=== PATIENT | male | born 1960 | race Caucasian/White ===

== ENCOUNTER 2016-06-15 14:27 | Emergency (ER) | payer BC ==
--- NOTE | 2016-06-15 15:15 | ED ---
General Adult HPI - General Chief complaint: Recheck/Abnormal Lab/Rx Stated complaint: Left side numbness/Stroke pt Time Seen by Provider: 06/15/16 14:53 Source: patient, RN notes reviewed Mode of arrival: wheelchair Limitations: no limitations - History of Present Illness Initial comments: Patient is a 55-year-old male who presents emergency room today with a chief complaint of numbness tingling to the left side of his face and hand area patient does admit that August 2015 was diagnosed with a stroke. Patient states that he had numbness tingling to the left upper lip and left fingertips. States he's had some degree of this sensation ever since. States that 2 days ago noticed that the symptoms seem to be somewhat increased. States that today he noticed that the numbness tingling to the left upper lip is now into the left cheek area. Patient also admits that he was at work he put his head back came for became very dizzy lightheaded. He states he had 2 episodes of this. States did not last very long. Denies any dizziness at this time. States still experiencing the numbness stinging to no the fingers and left upper lip and cheek area. Denies any other complaints or symptoms. Patient denies any recent fever, chills, shortness of breath, chest pain, back pain, abdominal pain , nausea or vomiting, dysuria or hematuria, constipation or diarrhea, headaches or visual changes, or any other complaints. - Related Data Home Medications Medication Instructions Recorded Confirmed Cholecalciferol [Vitamin D3] 2,000 unit PO DAILY 09/08/15 06/15/16 Divalproex ER [Depakote ER] 1,000 mg PO HS 09/08/15 06/15/16 Escitalopram [Lexapro] 10 mg PO DAILY 09/08/15 06/15/16 Multivit-Min/FA/Lycopene/Lut 1 tab PO DAILY 09/08/15 06/15/16 [Centrum Silver Tablet] Pantoprazole [Protonix] 40 mg PO DAILY 09/08/15 06/15/16 amLODIPine BESYLATE/BENAZEPRIL 1 cap PO DAILY 09/08/15 06/15/16 [amLODIPine BESYLATE/BENAZEPRIL 5-10 mg] Doxycycline Hyclate [Vibramycin] 100 mg PO BID 06/15/16 06/15/16 Varenicline [Chantix] 1 mg PO BID 06/15/16 06/15/16 hydrOXYzine PAMOATE [Vistaril] 25 mg PO TID 06/15/16 06/15/16 Previous Rx's Medication Instructions Recorded Atorvastatin [Lipitor] 80 mg PO HS #30 tab 09/10/15 Clopidogrel Bisulfate [Plavix] 75 mg PO DAILY #30 tab 09/10/15 Tiotropium 18 Mcg/Puff [Spiriva] 1 puff INHALATION RT-DAILY #1 09/10/15 inhaler Allergies Allergy/AdvReac Type Severity Reaction Status Date / Time Penicillins Allergy Severe Swelling Verified 06/15/16 14:50 Review of Systems ROS Statement: Those systems with pertinent positive or pertinent negative responses have been documented in the HPI. ROS Other: All systems not noted in ROS Statement are negative. Past Medical History Past Medical History: Chest Pain / Angina, Hyperlipidemia, Hypertension Additional Past Medical History / Comment(s): thoracic and lumbar back pain, L acromioclaviculat joint separation, L shoulder pain, trigger finger deformity l middle finger, acute naso pharyngitis, hypogonadism, depresion-major/mild, nicotine addiction, left knee osteomyelitis treated with IV antibiotics. History of Any Multi-Drug Resistant Organisms: None Reported Past Surgical History: Bowel Resection, Orthopedic Surgery Additional Past Surgical History / Comment(s): l knee arthroscopy/menisectomy, l arm's elbow fx with repair. Past Anesthesia/Blood Transfusion Reactions: No Reported Reaction Additional Past Anesthesia/Blood Transfusion Reaction / Comment(s): NEVER HAD BLOOD TRANSFUSION Past Psychological History: No Psychological Hx Reported Additional Psychological History / Comment(s): PT LIVES AT HOME WITH . .HE IS INDEPENDENT. 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 Smoking Status: Current every day smoker Past Alcohol Use History: Occasional Additional Past Alcohol Use History / Comment(s): Patient states he smokes 2 packs per day for the past 40 years. 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 Past Drug Use History: Marijuana, Opiates Additional Drug Use History / Comment(s): NO OPIATES IN 6 MONTHS AND RECENTLY STOPPED THE MARIJUANA - Past Family History Father Family Medical History: Coronary Artery Disease (CAD), Myocardial Infarction ([place] ) Additional Family Medical History / Comment(s): FATHER AT AGE 63 OF [place]. Mother Family Medical History: No Reported History Additional Family Medical History / Comment(s): RUTHIE IS ALIVE AND IS 86YRS OLD. Brother(s) Additional Family Medical History / Comment(s): Patient has 11 siblings, 5 sisters and 5 brothers alive. He had 1 brother that at 6 years of age after being hit by a car. Patient has 3 sons and 1 daughter that are healthy General Exam - General Exam Comments Initial Comments: General: The patient is awake and alert, in no distress, and does not appear acutely ill. Eye: Pupils are equal, round and reactive to light, extra-ocular movements are intact. No nystagmus. There is normal conjunctiva bilaterally. No signs of icterus. Ears, nose, mouth and throat: There are moist mucous membranes and no oral lesions. Neck: The neck is supple, there is no tenderness or JVD. Cardiovascular: There is a regular rate and rhythm. No murmur, rub or gallop is appreciated. Respiratory: Lungs are clear to auscultation, respirations are non-labored, breath sounds are equal. No wheezes, stridor, rales, or rhonchi. Gastrointestinal: Soft, non-distended, non-tender abdomen without masses or organomegaly noted. There is no rebound or guarding present. No CVA tenderness. Bowel sounds are unremarkable. Musculoskeletal: Normal ROM, no tenderness. Strength 5/5. Sensation intact. Pulses equal bilaterally 2+. Neurological: A&O x 3. CN II-XII intact, There are no obvious motor or sensory deficits. Coordination appears grossly intact. Speech is normal. Skin: Skin is warm and dry and no rashes or lesions are noted. Psychiatric: Cooperative, appropriate mood & affect, normal judgment. Limitations: no limitations Course Vital Signs 06/15/16 06/15/16 14:32 15:40 Temperature 97.0 F L 98.0 F Pulse Rate 67 62 Respiratory 20 16 Rate Blood Pressure 122/77 105/74 O2 Sat by Pulse 98 99 Oximetry EKG Findings - EKG Comments: EKG Findings:: EKG performed at 1525: A 12-lead EKG was performed and interpreted by me as showing the following: Rate is 63, and rhythm is normal sinus. There are normal QRS complexes and normal R-wave progression. ST segments have no elevation or depression, and [place] segments appear normal. Medical Decision Making - Medical Decision Making Case discussed in detail with attending physician Dr. Soriano. Patient reexamined at this time shows no signs of distress. His labs been reviewed. Patient states that symptoms have states a more being here in the emergency room. He admits to symptoms started 2 days ago. He does admit that this is her symptoms that is experienced over the last several months ever since having a stroke back in August 2015. He does admit that the have increased over the last [address] negative. Results were discussed with the patient. Options were discussed with patient about admission to the hospital for further evaluation with neuro consult. Patient states he does not was in a hospital and would rather be discharged home Risks were discussed with patient and family member at bedside. Again patient states he would like to be discharged. Patient states he will follow-up the family doctor and also her neurologist outpatient. Patient advised to return to emergency room for symptoms increase or worsen or for any other concerns. - Lab Data Result diagrams: 06/15/16 15:15 06/15/16 15:15 Lab Results 06/15/16 06/15/16 06/15/16 Range/Units 15:15 15:15 15:15 WBC 11.5 H (3.8-10.6) k/uL RBC 4.18 L (4.30-5.90) m/uL Hgb 13.8 (13.0-17.5) gm/dL Hct 40.4 (39.0-53.0) % MCV 96.7 (80.0-100.0) fL MCH 32.9 (25.0-35.0) pg MCHC 34.1 (31.0-37.0) g/dL RDW 13.9 (11.5-15.5) % Plt Count 320 (150-450) k/uL Neutrophils % 55 % Lymphocytes % 34 % Monocytes % 6 % Eosinophils % 1 % Basophils % 1 % Neutrophils # 6.3 (1.3-7.7) k/uL Lymphocytes # 3.9 (1.0-4.8) k/uL Monocytes # 0.7 (0-1.0) k/uL Eosinophils # 0.1 (0-0.7) k/uL Basophils # 0.1 (0-0.2) k/uL PT (9.0-12.0) sec INR (<1.1) APTT (22.0-30.0) sec Sodium 145 (137-145) mmol/L Potassium 3.9 (3.5-5.1) mmol/L Chloride 111 H (98-107) mmol/L Carbon Dioxide 25 (22-30) mmol/L Anion Gap 9 mmol/L BUN 12 (9-20) mg/dL Creatinine 0.80 (0.66-1.25) mg/dL Est GFR (MDRD) Af Amer >60 (>60 ml/min/1.73 sqM) Est GFR (MDRD) Non-Af >60 (>60 ml/min/1.73 sqM) Glucose 110 H (74-99) mg/dL Calcium 9.0 (8.4-10.2) mg/dL Total Bilirubin 0.3 (0.2-1.3) mg/dL AST 27 (17-59) U/L ALT 38 (21-72) U/L Alkaline Phosphatase 79 (38-126) U/L Total Creatine Kinase 126 (55-170) U/L CK-MB (CK-2) 0.9 (0.0-2.4) ng/mL CK-MB (CK-2) Rel Index 0.7 Troponin I <0.012 (0.000-0.034) ng/mL Total Protein 6.4 (6.3-8.2) g/dL Albumin 3.7 (3.5-5.0) g/dL 06/15/16 Range/Units 15:15 WBC (3.8-10.6) k/uL RBC (4.30-5.90) m/uL Hgb (13.0-17.5) gm/dL Hct (39.0-53.0) % MCV (80.0-100.0) fL MCH (25.0-35.0) pg MCHC (31.0-37.0) g/dL RDW (11.5-15.5) % Plt Count (150-450) k/uL Neutrophils % % Lymphocytes % % Monocytes % % Eosinophils % % Basophils % % Neutrophils # (1.3-7.7) k/uL Lymphocytes # (1.0-4.8) k/uL Monocytes # (0-1.0) k/uL Eosinophils # (0-0.7) k/uL Basophils # (0-0.2) k/uL PT 10.7 (9.0-12.0) sec INR 1.1 (<1.1) APTT 26.6 (22.0-30.0) sec Sodium (137-145) mmol/L Potassium (3.5-5.1) mmol/L Chloride (98-107) mmol/L Carbon Dioxide (22-30) mmol/L Anion Gap mmol/L BUN (9-20) mg/dL Creatinine (0.66-1.25) mg/dL Est GFR (MDRD) Af Amer (>60 ml/min/1.73 sqM) Est GFR (MDRD) Non-Af (>60 ml/min/1.73 sqM) Glucose (74-99) mg/dL Calcium (8.4-10.2) mg/dL Total Bilirubin (0.2-1.3) mg/dL AST (17-59) U/L ALT (21-72) U/L Alkaline Phosphatase (38-126) U/L Total Creatine Kinase (55-170) U/L CK-MB (CK-2) (0.0-2.4) ng/mL CK-MB (CK-2) Rel Index Troponin I (0.000-0.034) ng/mL Total Protein (6.3-8.2) g/dL Albumin (3.5-5.0) g/dL Disposition Clinical Impression: Paresthesia Disposition: HOME SELF-CARE Condition: Good Instructions: Paresthesia (ED) Additional Instructions: Please follow-up with the family doctor or neurologist tomorrow as discussed. Please return here to emergency room if any symptoms increase or worsen or for any other concerns. Time of Disposition: 17:14
[2016-06-15 16:09] LABS: Basophils # (A) 0.1 k/uL (0-0.2); Basophils % (A) 1 %; CH 32.3; CHCM 33.6; Eosinophils # (A) 0.1 k/uL (0-0.7); Eosinophils % (A) 1 %; HCT 40.4 % (39.0-53.0); HDW 2.49; HGB 13.8 gm/dL (13.0-17.5); Luc # (Auto) 0.39; Luc % (Auto) 3; Lymphocytes # (A) 3.9 k/uL (1.0-4.8); Lymphocytes % (A) 34 %; MCH 32.9 pg (25.0-35.0); MCHC 34.1 g/dL (31.0-37.0); MCV 96.7 fL (80.0-100.0); Mean Platelet Volume 6.6; Monocytes # (A) 0.7 k/uL (0-1.0); Monocytes % (A) 6 %; Neutrophils # (A) 6.3 k/uL (1.3-7.7); Neutrophils % (A) 55 %; RBC 4.18 m/uL (4.30-5.90); RDW 13.9 % (11.5-15.5); WBC 11.5 k/uL (3.8-10.6); WBC (Perox) 11.86
[2016-06-15 16:19] LABS: ALT 38 U/L (21-72); AST 27 U/L (17-59); Alkaline Phosphatase 79 U/L (38-126); Anion Gap 9 mmol/L; Blood Urea Nitrogen 12 mg/dL (9-20); Carbon Dioxide 25 mmol/L (22-30); Chloride 111 mmol/L (98-107); Creatine Kinase 126 U/L (55-170); Glucose 110 mg/dL (74-99); Non-African American GFR(MDRD) >60 (>60 ml/min/1.73 sqM); Potassium 3.9 mmol/L (3.5-5.1); Sodium 145 mmol/L (137-145); Total Bilirubin 0.3 mg/dL (0.2-1.3); Total Protein 6.4 g/dL (6.3-8.2)
--- NOTE | 2016-06-15 16:27 | CT ---
EXAMINATION TYPE: CT brain wo con DATE OF EXAM: 06/15/2016 4:21 PM COMPARISON: NONE HISTORY: Pt states of hand numbness. CT DLP: 971.9 mGycm Automated exposure control for dose reduction was used. FINDINGS: There is no acute intracranial hemorrhage, mass effect, or midline shift identified. The ventricles and sulci are within normal limits in size. The globes are intact and the visualized sinuses are annika ar. IMPRESSION: No acute intracranial hemorrhage, mass effect, or midline shift is seen.
[2016-06-15 16:32] LABS: Creatine Kinase MB 0.9 ng/mL (0.0-2.4); Troponin I <0.012 ng/mL (0.000-0.034)
[2016-06-15 16:43] LABS: INR 1.1 (<1.1); Partial Thromboplastin Time 26.6 sec (22.0-30.0); Prothrombin Time 10.7 sec (9.0-12.0)
[2016-06-15 17:28] VITALS: BP 135/87; PULSE 75; RESP 18; TEMP 98.5
== END 2016-06-15 17:28 | disposition home or self-care (01) ==
LOC: EC 14:27
DX: R20.2 Paresthesia of skin (principal); R42 Dizziness and giddiness; R20.0 Anesthesia of skin; I10 Essential (primary) hypertension; F17.200 Nicotine dependence, unspecified, uncomplicated; Z79.899 Other long term (current) drug therapy; Z88.0 Allergy status to penicillin; Z86.73 Personal history of transient ischemic attack (TIA), and cerebral infarction without residual deficits; Z86.79 Personal history of other diseases of the circulatory system
CPT/HCPCS: 36415; 70450; 80053; 82550; 82553; 84484; 85025; 85610; 85730; 93005; 99284

== ENCOUNTER → 2016-07-06 | Outpatient (CLI) | payer BC ==
--- NOTE | 2016-07-06 20:45 | MR ---
EXAMINATION TYPE: MR brain wo con, MR angio head wo con DATE OF EXAM: 07/06/2016 6:34 PM COMPARISON: CT brain June 15, 2016. MRI brain September 09, 2015. HISTORY: Patient has had a stroke, possibly another now. TECHNIQUE: Multiplanar, multisequence imaging of the brain and brainstem is performed without IV cont rast. [id number]-plihiq imaging proximal [place] of [place] is performed without contrast. 2-D and 3-D pos tprocessing is performed. FINDINGS: Diffusion weighted images demonstrate no evidence of a recent infarct or other diffusion abnormality. There is no worrisome extra-axial fluid collection. There is ventricular and sulcal prominence consis tent with diffuse cerebral atrophy. There are some scattered foci T2 hyperintensity seen throughout t he white matter bilaterally. Approximately 20 small scattered lesions are identified. Midline structures demonstrate normal morphology. The craniocervical junction appears within normal limits. Normal vascular flow voids are present. The visualized sinuses are clear and the globes are intact. Some patchy fluid signal seen in right mastoid air cells on current study. Interval resolutio n of left-sided mastoid fluid is noted. There is dominant left vertebral artery redemonstrated. There is no significant focal stenosis or ane urysmal change in the posterior circulation. There are hypoplastic posterior communicating arteries s een bilaterally. Images of the anterior circulation show no significant focal stenosis or aneurysmal change. Patent anterior communicating artery is identified IMPRESSION: 1. No evidence of aneurysmal change or significant focal stenosis at level of the [place] of [place]. 2. No evidence of a recent infarct. 3. Mild diffuse cerebral atrophy and chronic small vessel ischemic change redemonstrated without sign ificant interval change from prior MRI. 4. Possible new right-sided mild mastoiditis, clinical correlation advised.
== END | disposition home or self-care (01) ==
LOC: RADMRIMAIN 17:31
PROVIDERS: ATTEND Psychiatry & Neurology Neurology
DX: I63.8 Other cerebral infarction (principal); G31.9 Degenerative disease of nervous system, unspecified; I67.82 Cerebral ischemia
CPT/HCPCS: 70544; 70551

== ENCOUNTER → 2018-03-22 | Outpatient (CLI) | payer BC ==
--- NOTE | 2018-03-22 17:22 | CTL ---
EXAMINATION TYPE: CT Low Dose Lung DATE OF EXAM ORDERED: 03/22/2018 HISTORY: . Lung cancer screening CT DLP: [address] CTDI: 2.14 mGy Automated exposure control for dose reduction was used. SCREENING VISIT: Initial COMPARISON: None TECHNIQUE: Low dose computed tomography scan was performed through the chest at 1 mm thick sections a nd reconstructed images in the coronal plane at [address] DIAGNOSTIC QUALITY: Limited, but interpretable FINDINGS: LUNG NODULES: None. LUNGS: COPD: Severity: None Fibrosis: Severity: None Lymph nodes: None Other findings: None RIGHT PLEURAL SPACE: Effusion: None Calcification: None Thickening: None Pneumothorax: None LEFT PLEURAL SPACE: Effusion: None Calcification: None Thickening: None Pneumothorax: None HEART: Heart Size: Normal Coronary calcification: Mild Pericardial effusion: None OTHER FINDINGS: Upper abdomen: Normal Bony thorax: Normal Supraclavicular region: Normal Other: Ascending thoracic aorta at the level of main pulmonary artery is 3.2 cm. The main pulmonary a rtery the bifurcation is 2.6 cm. IMPRESSION: 1. No suspicious changes. FOLLOW UP CT CHEST RECOMMENDATION: Screening low-dose CT chest per protocol CT LUNG RAD: 1
== END | disposition home or self-care (01) ==
LOC: RADCTMAIN 13:17
PROVIDERS: ATTEND Family Medicine
DX: Z12.2 Encounter for screening for malignant neoplasm of respiratory organs (principal); Z87.891 Personal history of nicotine dependence

== ENCOUNTER → 2019-05-20 | Outpatient (CLI) | payer BC ==
--- NOTE | 2019-05-20 08:21 | CTL ---
EXAMINATION TYPE: CT Low Dose Lung DATE OF EXAM ORDERED: 05/20/2019 HISTORY: Long-term tobacco use. Lung cancer screening CT DLP: 72.[address] CTDI: 2.1 mGy Automated exposure control for dose reduction was used. SCREENING VISIT: Second study COMPARISON: Prior low-dose lung screening CT March 22, 2018 TECHNIQUE: Low dose computed tomography scan was performed through the chest at 1 mm thick sections a nd reconstructed images in the coronal plane at [address] DIAGNOSTIC QUALITY: Satisfactory FINDINGS: LUNG NODULES: None. LUNGS: COPD: Severity: None Fibrosis: Severity: Normal Lymph nodes: No suspicious greater than 1 cm Other findings: None BILATERAL PLEURAL SPACE: Effusion: None Calcification: None Thickening: None Pneumothorax: None HEART: Heart Size: Normal Coronary calcification: Mild Pericardial effusion: None OTHER FINDINGS: Upper abdomen: None Bony thorax: None Supraclavicular region: None Other: None IMPRESSION: No suspicious new nodules or masses. FOLLOW UP CT CHEST RECOMMENDATION: Annual low-dose lung screening CT CT LUNG RAD: Lung-Rad 1 Negative
== END | disposition home or self-care (01) ==
LOC: RADCTMAIN 07:55
PROVIDERS: ATTEND Family Medicine
DX: Z12.2 Encounter for screening for malignant neoplasm of respiratory organs (principal); Z87.891 Personal history of nicotine dependence

== ENCOUNTER 2019-08-07 11:00 | Day surgery (SDC) | payer BC ==
[2019-08-05 09:42] VITALS: BMI 20.7
[~2019-08-07 11:00] MED LIST: CLINDAMYCIN 900 MG in DEXTROSE 5% IN WATER 50 ML IVPB ONE
[2019-08-07 11:26] VITALS: TEMP 98.6
[2019-08-07] MEDS ORDERED: LACTATED RINGERS 1,000 ML IV ONE (11:27)
[2019-08-07] MEDS ORDERED: LIDOCAINE 1% (10MG/ML) FOR IV START INTRADERMA ONE (11:27)
[2019-08-07] MEDS ORDERED: DEXAMETHASONE SOD PHOS (MDV) 100 MG/10 ML VIAL IVP ONE (12:08)
[2019-08-07] MEDS ORDERED: ONDANSETRON 4 MG/2 ML VIAL IVP ONE (12:08)
[2019-08-07] MEDS ORDERED: PROPOFOL 10 MG/ML 20 ML VIAL IV ONE (12:21)
[2019-08-07] MEDS ORDERED: MIDAZOLAM 2 MG/2 ML VIAL ONE (12:21)
[2019-08-07] MEDS ORDERED: fentaNYL (PF) 50 MCG/ML 2 ML AMP ONE (12:21)
[2019-08-07] MEDS ORDERED: LIDOCAINE 2% INJ 20 MG/ML SQ ONE (12:35)
[2019-08-07] MEDS ORDERED: BUPIVACAINE (PF) 0.5% 30 ML VIAL SQ ONE (12:35)
[2019-08-07] MEDS ORDERED: HYDROmorphone 0.5 MG/0.5 ML SYRINGE IVP PRN (13:11)
[2019-08-07 13:15] VITALS: RESP 16
[2019-08-07] MEDS ORDERED: LACTATED RINGERS 1,000 ML IV SCH (13:15)
[2019-08-07 13:41] VITALS: BP 112/73; PULSE 55
--- NOTE | 2019-08-07 15:12 | OP ---
OPERATIVE REPORT DATE OF SERVICE: 08/06/2025. PREOPERATIVE DIAGNOSIS: Complete extensor tendon laceration, right thumb, zone 2. FINAL DIAGNOSIS: Complete extensor tendon laceration, right thumb, zone 2. PROCEDURE: Primary repair, complete extensor tendon laceration, right thumb zone 2. INDICATIONS: A 59-year-old man sustained a complete laceration of his EPL over the dorsal proximal phalanx level just distal to the extensor elliott mechanism. This occurred approximately a week ago. Repair was easily possible without excessive tension. There was no signs of wound infection. PROCEDURE DESCRIPTION: A 59-year-old man taken to the operative suite, given IV sedation and I did a modified digital block of his right thumb with a combination of Xylocaine and Marcaine both without epinephrine. The hand was then prepped and draped in the usual manner. It was elevated, exsanguinated and cuff was inflated to 250 mmHg. His wound was opened and as anticipated, there was slight retraction of the tendon proximally, but it was held up by the extensor elliott mechanism. This enabled relatively easy exposure with slight lengthening in a zigzag manner both proximally and distally. The tendons edges were mobilized and freshened with a sharp cut. It was easy to approximate the edges by hyperextending the IP joint of the thumb. I also advanced the proximal stump distally and held it in place with a 25-gauge needle. The primary repair was with 3-0 Tycron as a core suture using a double grasping modified Moody-type stitch. This provided good approximation and there was good suture purchase. This was augmented with 2 additional mattress sutures of the same material producing a 6 core repair. The edges were well approximated and I did not feel it was necessary to supplement this with additional peripheral suture. The wound was thoroughly irrigated. The resting posture of the thumb returned to normal. The repair was secure on a direct observation. After the wound had been thoroughly cleansed and the tourniquet had been released, hemostasis was accomplished with pressure and a small amount of electrocautery. The wound was closed with interrupted 5-0 nylon suture. Soft bulky dressing was applied followed by a plaster splint holding the wrist in a slight extended position and the thumb in an extended position. He was then taken to recovery room in satisfactory condition. MMODL / IJN: [id number] /
== END 2019-08-07 14:00 | disposition home or self-care (01) ==
LOC: OR 11:00
PROVIDERS: ATTEND Orthopaedic Surgery Hand Surgery
DX: S66.221A Laceration of extensor muscle, fascia and tendon of right thumb at wrist and hand level, initial encounter (principal); I10 Essential (primary) hypertension; E78.5 Hyperlipidemia, unspecified; J44.9 Chronic obstructive pulmonary disease, unspecified; F32.9 Major depressive disorder, single episode, unspecified; Z79.899 Other long term (current) drug therapy; Z79.02 Long term (current) use of antithrombotics/antiplatelets; Z88.0 Allergy status to penicillin; Z98.890 Other specified postprocedural states; Z72.0 Tobacco use; Z86.73 Personal history of transient ischemic attack (TIA), and cerebral infarction without residual deficits; Z83.3 Family history of diabetes mellitus; W26.8XXA Contact with other sharp object(s), not elsewhere classified, initial encounter; Y93.89 Activity, other specified; Y92.019 Unspecified place in single-family (private) house as the place of occurrence of the external cause
CPT/HCPCS: 26418; J2001; J2250; J2405; J3010; J1100; J2704

== ENCOUNTER 2020-06-03 18:35 | Observation (INO) | payer BC ==
--- NOTE | 2020-06-03 19:11 | ED ---
General Adult HPI - General Chief complaint: Recheck/Abnormal Lab/Rx Stated complaint: Arms are numb/Chest discomfort Time Seen by Provider: 06/03/20 18:48 Source: patient, RN notes reviewed, old records reviewed Mode of arrival: ambulatory Limitations: no limitations - History of Present Illness Initial comments: This is a 59-year-old male with a history of TIA prior workups for angina history depression and bipolar disorder who presents with complaints of chest pain but bilateral arm heaviness 2 weeks ago he states it lasted briefly at that time he recurrence today around 2 AM also some nausea and dizziness. Early he is symptom-free he did go to his doctor's office and was sent here for further evaluation. He denies any dizziness or any other symptoms at this time. - Related Data Home Medications Medication Instructions Recorded Confirmed Atorvastatin [Lipitor] 80 mg PO HS 08/05/19 08/07/19 Clopidogrel [Plavix] 75 mg PO DAILY 08/05/19 08/07/19 Divalproex Sodium [Depakote] 1,000 mg PO HS 08/05/19 08/07/19 Ergocalciferol (Vitamin D2) 50,000 unit PO MO 08/05/19 08/07/19 [Vitamin D2] Escitalopram [Lexapro] 10 mg PO DAILY 08/05/19 08/07/19 Omeprazole 20 mg PO DAILY 08/05/19 08/07/19 amLODIPine BESYLATE/BENAZEPRIL 1 cap PO DAILY 08/05/19 08/07/19 [Lotrel 5-10 MG] Allergies Allergy/AdvReac Type Severity Reaction Status Date / Time Penicillins Allergy Severe Swelling Verified 06/03/20 18:42 Review of Systems ROS Statement: Those systems with pertinent positive or pertinent negative responses have been documented in the HPI. ROS Other: All systems not noted in ROS Statement are negative. Past Medical History Past Medical History: Chest Pain / Angina, Hyperlipidemia, Hypertension Additional Past Medical History / Comment(s): thoracic and lumbar back pain, L acromioclaviculat joint separation, L shoulder pain, trigger finger deformity l middle finger, acute naso pharyngitis, hypogonadism, depresion-major/mild, nicotine addiction, left knee osteomyelitis treated with IV antibiotics. History of Any Multi-Drug Resistant Organisms: None Reported Past Surgical History: Bowel Resection, Orthopedic Surgery Additional Past Surgical History / Comment(s): LT knee arthroscopy/menisectomy, LT arm's elbow fx with repair. LT THUMB SX, hand surgery Past Anesthesia/Blood Transfusion Reactions: No Reported Reaction Additional Past Anesthesia/Blood Transfusion Reaction / Comment(s): NEVER HAD BLOOD TRANSFUSION Past Psychological History: Bipolar, Depression Smoking Status: Current every day smoker Past Alcohol Use History: None Reported Past Drug Use History: Marijuana - Past Family History Father Family Medical History: Coronary Artery Disease (CAD), Myocardial Infarction ([place]) Additional Family Medical History / Comment(s): FATHER AT AGE 63 OF [place]. Mother Family Medical History: Deep Vein Thrombosis (DVT) Additional Family Medical History / Comment(s): MOTHER IS ALIVE AND IS 92 YRS OLD. Brother(s) Additional Family Medical History / Comment(s): Patient has 11 siblings, 5 sisters and 5 brothers alive. He had 1 brother that at 6 years of age after being hit by a car. Patient has 3 sons and 1 daughter that are healthy General Exam - General Exam Comments Initial Comments: This is a well-developed well-nourished awake alert oriented 3 male Limitations: no limitations General appearance: alert, in no apparent distress Head exam: Present: atraumatic, normocephalic, normal inspection Eye exam: Present: normal appearance, PERRL, EOMI. Absent: scleral icterus, conjunctival injection, periorbital swelling ENT exam: Present: normal exam, mucous membranes moist Neck exam: Present: normal inspection, full ROM, other. Absent: tenderness, meningismus, lymphadenopathy Respiratory exam: Present: normal lung sounds bilaterally. Absent: respiratory distress, wheezes, rales, rhonchi, stridor Cardiovascular Exam: Present: regular rate, normal rhythm, normal heart sounds. Absent: systolic murmur, diastolic murmur, rubs, gallop, clicks GI/Abdominal exam: Present: soft, normal bowel sounds. Absent: distended, tenderness, guarding, rebound, rigid Extremities exam: Present: normal inspection, full ROM, normal capillary refill. Absent: tenderness, pedal edema, joint swelling, calf tenderness Back exam: Present: normal inspection Neurological exam: Present: alert, oriented X3, CN II-XII intact Psychiatric exam: Present: normal affect, normal mood Skin exam: Present: warm, dry, intact, normal color. Absent: rash Course Vital Signs 06/03/20 18:37 Temperature 98.3 F Pulse Rate 70 Respiratory 18 Rate Blood Pressure 122/74 O2 Sat by Pulse 98 Oximetry EKG Findings - EKG Results: EKG: interpreted by MELODY, sinus rhythm (Sinus rhythm of 52 IN interval 134 QRS duration 12 QT since QTC 444/412 low-voltage QRSs does compare with EKG dated 06/15/16 he also does correlate with the one submitted from the doctor's office.) Medical Decision Making - Medical Decision Making Patient has no further symptoms at this time however his symptoms are suspicious for coronary disease as well as cerebrovascular abnormalities. I did discuss case with Dr. Miguel patient will be admitted with consultation by cardiology and neurology. Dr. Dinh will be taking over care in the morning. - Lab Data Result diagrams: 06/03/20 19:12 06/03/20 19:12 Lab Results 06/03/20 06/03/20 06/03/20 Range/Units 19:12 19:12 19:12 WBC 8.7 (3.8-10.6) k/uL RBC 4.06 L (4.30-5.90) m/uL Hgb 13.0 (13.0-17.5) gm/dL Hct 39.4 (39.0-53.0) % MCV 97.1 (80.0-100.0) fL MCH 32.2 (25.0-35.0) pg MCHC 33.1 (31.0-37.0) g/dL RDW 13.9 (11.5-15.5) % Plt Count 279 (150-450) k/uL MPV 7.2 Neutrophils % 40 % Lymphocytes % 46 % Monocytes % 8 % Eosinophils % 2 % Basophils % 1 % Neutrophils # 3.5 (1.3-7.7) k/uL Lymphocytes # 4.1 (1.0-4.8) k/uL Monocytes # 0.7 (0-1.0) k/uL Eosinophils # 0.2 (0-0.7) k/uL Basophils # 0.1 (0-0.2) k/uL PT 10.6 (9.0-12.0) sec INR 1.0 (<1.2) APTT 26.2 (22.0-30.0) sec D-Dimer 0.27 (<0.60) mg/L FEU Sodium 140 (137-145) mmol/L Potassium 3.9 (3.5-5.1) mmol/L Chloride 108 H (98-107) mmol/L Carbon Dioxide 26 (22-30) mmol/L Anion Gap 6 mmol/L BUN 14 (9-20) mg/dL Creatinine 0.86 (0.66-1.25) mg/dL Est GFR (CKD-EPI)AfAm >90 (>60 ml/min/1.73 sqM) Est GFR (CKD-EPI)NonAf >90 (>60 ml/min/1.73 sqM) Glucose 104 H (74-99) mg/dL Calcium 9.1 (8.4-10.2) mg/dL Magnesium 2.1 (1.6-2.3) mg/dL Total Bilirubin 0.3 (0.2-1.3) mg/dL AST 28 (17-59) U/L ALT 17 (4-49) U/L Alkaline Phosphatase 66 (38-126) U/L Creatine Kinase 122 (55-170) U/L Troponin I (0.000-0.034) ng/mL NT-Pro-B Natriuret Pep pg/mL Total Protein 6.5 (6.3-8.2) g/dL Albumin 3.9 (3.5-5.0) g/dL 06/03/20 06/03/20 Range/Units 19:12 19:12 WBC (3.8-10.6) k/uL RBC (4.30-5.90) m/uL Hgb (13.0-17.5) gm/dL Hct (39.0-53.0) % MCV (80.0-100.0) fL MCH (25.0-35.0) pg MCHC (31.0-37.0) g/dL RDW (11.5-15.5) % Plt Count (150-450) k/uL MPV Neutrophils % % Lymphocytes % % Monocytes % % Eosinophils % % Basophils % % Neutrophils # (1.3-7.7) k/uL Lymphocytes # (1.0-4.8) k/uL Monocytes # (0-1.0) k/uL Eosinophils # (0-0.7) k/uL Basophils # (0-0.2) k/uL PT (9.0-12.0) sec INR (<1.2) APTT (22.0-30.0) sec D-Dimer (<0.60) mg/L FEU Sodium (137-145) mmol/L Potassium (3.5-5.1) mmol/L Chloride (98-107) mmol/L Carbon Dioxide (22-30) mmol/L Anion Gap mmol/L BUN (9-20) mg/dL Creatinine (0.66-1.25) mg/dL Est GFR (CKD-EPI)AfAm (>60 ml/min/1.73 sqM) Est GFR (CKD-EPI)NonAf (>60 ml/min/1.73 sqM) Glucose (74-99) mg/dL Calcium (8.4-10.2) mg/dL Magnesium (1.6-2.3) mg/dL Total Bilirubin (0.2-1.3) mg/dL AST (17-59) U/L ALT (4-49) U/L Alkaline Phosphatase (38-126) U/L Creatine Kinase (55-170) U/L Troponin I <0.012 (0.000-0.034) ng/mL NT-Pro-B Natriuret Pep 60 pg/mL Total Protein (6.3-8.2) g/dL Albumin (3.5-5.0) g/dL - Radiology Data Radiology results: report reviewed (I did review the imaging and report no acute findings. CAT scan negative for acute findings.), image reviewed Disposition Clinical Impression: Chest pain Disposition: ADMITTED IP TO THIS [facility] Condition: Fair Referrals: Chito Gary MD [Primary Care Provider] - 1-2 days
--- NOTE | 2020-06-03 19:34 | XR ---
EXAMINATION: XR chest 2V DATE AND TIME: 06/03/2020 7:08 PM CLINICAL INDICATION: PHH; Chest Pain TECHNIQUE: Departmental protocol COMPARISON: 09/08/2015 FINDINGS: The lungs are clear. The pleural spaces are negative. The cardiac silhouette is not enlarged. The remainder of the mediastinal silhouette is unremarkable. The skeletal structures and soft tissues are negative for acute findings. IMPRESSION: NO ACUTE PROCESS.
--- NOTE | 2020-06-03 19:37 | CT ---
EXAMINATION: CT brain wo con DATE AND TIME: 06/03/2020 7:27 PM CLINICAL INDICATION: PHH; Neuro deficit, acute, stroke suspected TECHNIQUE: Standard departmental protocol DLP 1173.4 mGy-cm COMPARISON: 06/15/2016 FINDINGS: The calvarium is intact. There is no intracranial hemorrhage. There is no intracranial mass or mass effect. No definite new intra-axial or extra-axial attenuation defect. The paranasal sinuses, middle ear cavities, and mastoid sinus air cells are clear. The orbits are unremarkable. IMPRESSION: NO ACUTE PROCESS.
[2020-06-03 19:39] LABS: Basophils # (A) 0.1 k/uL (0-0.2); Basophils % (A) 1 %; Eosinophils # (A) 0.2 k/uL (0-0.7); Eosinophils % (A) 2 %; HCT 39.4 % (39.0-53.0); Lymphocytes # (A) 4.1 k/uL (1.0-4.8); Lymphocytes % (A) 46 %; MCH 32.2 pg (25.0-35.0); MCHC 33.1 g/dL (31.0-37.0); MCV 97.1 fL (80.0-100.0); Mean Platelet Volume 7.2; Monocytes # (A) 0.7 k/uL (0-1.0); Monocytes % (A) 8 %; Neutrophils # (A) 3.5 k/uL (1.3-7.7); Neutrophils % (A) 40 %; Platelet Count 279 k/uL (150-450); RBC 4.06 m/uL (4.30-5.90); RDW 13.9 % (11.5-15.5); WBC 8.7 k/uL (3.8-10.6)
[2020-06-03 19:49] LABS: D-Dimer 0.27 mg/L FEU (<0.60); Partial Thromboplastin Time 26.2 sec (22.0-30.0); Prothrombin Time 10.6 sec (9.0-12.0)
[2020-06-03 19:59] LABS: ALT 17 U/L (4-49); AST 28 U/L (17-59); African American GFR (CKD) >90 (>60 ml/min/1.73 sqM); Albumin 3.9 g/dL (3.5-5.0); Alkaline Phosphatase 66 U/L (38-126); Anion Gap 6 mmol/L; Blood Urea Nitrogen 14 mg/dL (9-20); Calcium 9.1 mg/dL (8.4-10.2); Carbon Dioxide 26 mmol/L (22-30); Chloride 108 mmol/L (98-107); Creatine Kinase 122 U/L (55-170); Glucose 104 mg/dL (74-99); Magnesium 2.1 mg/dL (1.6-2.3); Non-African American GFR(CKD) >90 (>60 ml/min/1.73 sqM); Potassium 3.9 mmol/L (3.5-5.1); Sodium 140 mmol/L (137-145); Total Bilirubin 0.3 mg/dL (0.2-1.3); Total Protein 6.5 g/dL (6.3-8.2)
[2020-06-03] MEDS ORDERED: ASPIRIN 81 MG PO STA (20:28)
[2020-06-03] MEDS ORDERED: NITROGLYCERIN SL TABS 0.4 MG TAB SUBLINGUAL PRN (20:28)
[2020-06-03] MEDS ORDERED: NICOTINE 21MG/24HR PATCH TRANSDERM STA (20:32)
[2020-06-03] MEDS ORDERED: ATORVASTATIN 80 MG TAB PO SCH (21:00)
[2020-06-03] MEDS ORDERED: DIVALPROEX 500 MG TABLET.DR PO SCH (21:00)
--- NOTE | 2020-06-03 23:42 | P.HPIM ---
History of Present Illness H&P Date: 06/03/20 Chief Complaint: bilateral upper extremities numbness 59 year old male with history of hypertension , hyperlipidemia , TIA patient comes in due to sudden onset bilateral upper extremity numbness that started suddenly around 2 AM , when he normally wakes up to go to work, it was short lived, no weakness, or headache, no chest pain or trouble breathing, no other focal neuro deficits. he claims that he had numbness years ago around his mouth , and was diagnosed with TIA. 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 but then was concerned and decided to come to the hospital for evaluation after his shift. he reports chest discomfort with dizziness that has happened suddenly about 2 weeks ago. he does have history of angina. patient currently feels back to his normal status and denies any complaints. patient is a daily smoker, denies drugs or alcohol in the ED blood work unremarkable, CT brain no acute pathology , vital signs stable , EKG showed sinus bradycardia he otherwise , denies any shortness of breath, coughing, nausea or vomiting, denies any GI changes, or urinary symptoms Review of Systems Pertinent positives as noted in HPI. All other systems were reviewed and are negative Past Medical History Past Medical History: Chest Pain / Angina, Hyperlipidemia, Hypertension Additional Past Medical History / Comment(s): thoracic and lumbar back pain, L acromioclaviculat joint separation, L shoulder pain, trigger finger deformity l middle finger, acute naso pharyngitis, hypogonadism, depresion-major/mild, nicotine addiction, left knee osteomyelitis treated with IV antibiotics. History of Any Multi-Drug Resistant Organisms: None Reported Past Surgical History: Bowel Resection, Orthopedic Surgery Additional Past Surgical History / Comment(s): LT knee arthroscopy/menisectomy, LT arm's elbow fx with repair. LT THUMB SX, hand surgery Past Anesthesia/Blood Transfusion Reactions: No Reported Reaction Additional Past Anesthesia/Blood Transfusion Reaction / Comment(s): NEVER HAD BLOOD TRANSFUSION Past Psychological History: Bipolar, Depression Smoking Status: Current every day smoker Past Alcohol Use History: None Reported Past Drug Use History: Marijuana - Past Family History Father Family Medical History: Coronary Artery Disease (CAD), Myocardial Infarction ([place]) Additional Family Medical History / Comment(s): FATHER AT AGE 63 OF [place]. Mother Family Medical History: Deep Vein Thrombosis (DVT) Additional Family Medical History / Comment(s): MOTHER IS ALIVE AND IS 92 YRS OLD. Brother(s) Additional Family Medical History / Comment(s): Patient has 11 siblings, 5 sisters and 5 brothers alive. He had 1 brother that at 6 years of age after being hit by a car. Patient has 3 sons and 1 daughter that are healthy Medications and Allergies Home Medications Medication Instructions Recorded Confirmed Type Atorvastatin [Lipitor] 80 mg PO HS 08/05/19 06/03/20 History Clopidogrel [Plavix] 75 mg PO DAILY 08/05/19 06/03/20 History Divalproex Sodium [Depakote] 1,000 mg PO HS 08/05/19 06/03/20 History Escitalopram [Lexapro] 10 mg PO DAILY 08/05/19 06/03/20 History Omeprazole 20 mg PO DAILY 08/05/19 06/03/20 History amLODIPine BESYLATE/BENAZEPRIL 1 cap PO DAILY 08/05/19 06/03/20 History [Lotrel 5-10 MG] Cholecalciferol [Vitamin D3 (25 25 mcg PO DAILY 06/03/20 06/03/20 History Mcg = 1000 Iu)] hydrOXYzine HCL [Atarax] 50 mg PO DAILY PRN 06/03/20 06/03/20 History Allergies Allergy/AdvReac Type Severity Reaction Status Date / Time Penicillins Allergy Severe Swelling Verified 06/03/20 21:01 Physical Exam Vitals: Vital Signs Temp Pulse Resp BP Pulse Ox 06/03/20 20:48 65 18 144/79 97 06/03/20 18:37 98.3 F 70 18 122/74 98 Intake and Output 06/03/20 06/03/20 06/03/20 06:59 14:59 22:59 Other: Weight 68.039 kg Constitutional: No acute distress, conversant, pleasant Eyes: Anicteric sclerae, moist conjunctiva, Pupils equal round reactive to light ENMT: NC/AT Oropharynx clear, no erythema, or exudates Neck: Supple, FROM, no masses, or JVD No carotid bruits No thyromegaly Lungs: Clear to auscultation Clear to percussion Normal respiratory effort, no accessory muscle use Cardiovascular: Heart regular in rate and rhythm, No murmurs, gallops, or rubs No peripheral edema Abdominal: Soft Nontender, no guarding, rebound or rigidity Abdomen moving with respiration Normoactive bowel sounds No hepatomegaly, No splenomegaly No palpable mass No abdominal wall hernia noted Skin: Normal temperature, tone, texture, turgor No induration No subcutaneous nodules No rash, lesions No ulcers Extremities: No digital cyanosis No clubbing Pedal pulses intact and symmetrical Radial pulses intact and symmetrical No calf tenderness Psychiatric: Alert and oriented to person, place and time Appropriate affect fair judgement Neuro Muscles Strength 5/5 in all 4 extremities Sensation to light touch grossly present throughout Cranial nerves II-XII grossly intact No focal sensory deficits Lymphatics: no palpable cervical or supraclavicular , or inguinal lymph nodes Results CBC & Chem 7: 06/03/20 19:12 06/03/20 19:12 Labs: Abnormal Lab Results - Last 24 Hours (Table) 06/03/20 06/03/20 Range/Units 19:12 19:12 RBC 4.06 L (4.30-5.90) m/uL Chloride 108 H (98-107) mmol/L Glucose 104 H (74-99) mg/dL Assessment and Plan Assessment: TIA , resolved check echocardiogram neuro checks aspirin , plavix, statin neuro consult check Lipid profile, TSH, A1C carotid US OT consult brain CT negative atypical chest pain , rule out ACS check echo cardiology consult trops ASA, plavix, statin 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
[2020-06-04] MEDS ORDERED: PANTOPRAZOLE 40 MG TABLET PO SCH (07:30)
[2020-06-04] MEDS ORDERED: lisinopriL 10 MG TAB PO SCH (09:00)
[2020-06-04] MEDS ORDERED: amLODIPine 5 MG TAB PO SCH (09:00)
[2020-06-04] MEDS ORDERED: ESCITALOPRAM 10 MG TAB PO SCH (09:00)
[2020-06-04] MEDS ORDERED: ASPIRIN 325 MG TAB PO SCH (09:00)
[2020-06-04] MEDS ORDERED: CLOPIDOGREL 75 MG TAB PO SCH (09:00)
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
--- NOTE | 2020-06-04 11:00 | US ---
EXAMINATION TYPE: US carotid duplex BILAT DATE OF EXAM: 06/04/2020 COMPARISON: MRI , US 09/08/2015 CLINICAL HISTORY: Possible TIA. EXAM MEASUREMENTS: RIGHT: Peak Systolic Velocity (PSV) cm/sec ----- Right CCA: 105 ----- Right ICA: 93.4 ----- Right ECA: 140 ICA/CCA ratio: 0.9 RIGHT: End Diastole cm/sec ----- Right CCA: 21.8 ----- Right ICA: 35.8 ----- Right ECA: 23.6 LEFT: Peak Systolic Velocity (PSV) cm/sec ----- Left CCA: 99.6 ----- Left ICA: 111 ----- Left ECA: 85.8 ICA/CCA ratio: 1.1 LEFT: End Diastole cm/sec ----- Left CCA: 30.4 ----- Left ICA: 29.8 ----- Left ECA: 16.6 VERTEBRALS (direction of flow): Right Vertebral: Antegrade Left Vertebral: Antegrade Rhythm: Normal Moderate amount of plaque visualized bilaterally. No elevated velocities. No significant stenosis Intimal thickening is present bilaterally. IMPRESSION: Intimal thickening in bilateral atheromatous plaquing without flow-limiting stenosis. Criteria for Assigning % of Stenosis / Diameter reduction (Estimation based on the indirect measurements of the internal carotid artery velocities (ICA PSV). 1. Normal (no stenosis)=ICA PSV < 125 cm/s: ratio < 2.0: ICA EDV<40 cm/s. 2. Less than 50% stenosis=ICA PSV < 125 cm/s: ratio < 2.0: ICA EDV<40 cm/s. 3. 50 to 69% stenosis=ICA PSV of 125 to 230 cm/s: ration 2.0 ? 4.0: ICA EDV 40-100 cm/s. 4. Greater than 70% stenosis to near occlusion= ICA PSV > 230 cm/s: ratio > 4.0: ICA EDV > 100 cm/s. 5. Near occlusion= ICA PSV velocities may be low or undetectable: variable ratio and ICA EDV. 6. Total occlusion=unable to detect flow.
[2020-06-04] MEDS ORDERED: ALBUTEROL NEBULIZED 2.5 MG/3 ML INHALATION PRN (11:10)
--- NOTE | 2020-06-04 11:38 | ECHOF ---
Referral Reason:Chest pain MEASUREMENTS -------- HEIGHT: 175.3 cm WEIGHT: 68.0 kg BP: 127/73 RVIDd: 4.1 cm (< 3.3) IVSd: 0.6 cm (0.6 - 1.1) LVIDd: 4.6 cm (3.9 - 5.3) LVPWd: 1.3 cm (0.6 - 1.1) IVSs: 1.0 cm LVIDs: 2.9 cm LVPWs: 1.5 cm LAESV Index (A-L): 28.37 ml/m Ao Diam: 3.1 cm (2.0 - 3.7) AV Cusp: 2.3 cm (1.5 - 2.6) LA Diam: 4.0 cm (2.7 - 3.8) MV EXCURSION: 23.063 mm (> 18.000) MV EF SLOPE: 125 mm/s (70 - 150) EPSS: 1.0 cm MV E Say: 0.68 m/s MV DecT: 280 ms MV A Say: 0.78 m/s MV E/A Ratio: 0.88 RAP: 5.00 mmHg RVSP: 30.25 mmHg FINDINGS -------- Resting bradycardia (HR<60bpm). This was a technically adequate study. The left ventricular size is normal. Left ventricular wall thickness is normal. Overall left vent ricular systolic function is normal with, an EF between 55 - 60 %. The diastolic filling pattern is normal for the age of the patient 6.33. The right ventricle is moderately enlarged. Normal LA size by volume 22+/-6 ml/m2. The right atrial size is normal. Mobile interatrial septum. The aortic valve is trileaflet and appears structurally normal. There is no evidence of aortic regu rgitation. There is no evidence of aortic stenosis. There is trace to mild mitral regurgitation. Mild tricuspid regurgitation present. There is no evidence of pulmonary hypertension. The right v entricular systolic pressure, as measured by Doppler, is 30.25mmHg. There is no pulmonic regurgitation present. The aortic root size is normal. The inferior vena cava is mildly dilated. There is no pericardial effusion. CONCLUSIONS -------- 1. The left ventricular size is normal. 2. Left ventricular wall thickness is normal. 3. Overall left ventricular systolic function is normal with, an EF between 55 - 60 %. 4. The diastolic filling pattern is normal for the age of the patient 6.33 5. The right ventricle is moderately enlarged. 6. Mobile interatrial septum. 7. There is trace to mild mitral regurgitation. 8. Mild tricuspid regurgitation present. TRACK REPAIR LABORER: Beth Beltrán RDCS
[2020-06-04 12:25] LABS: Chol/HDL Ratio 2.93; LDL Cholesterol,Calculated 64.8 mg/dL (0.0-131.0); VLDL Calculation 14.2 mg/dL (5.00-40.00)
[2020-06-04 14:03] VITALS: BMI 22.1
[2020-06-04 14:12] VITALS: BP 114/71; PULSE 64; RESP 14; TEMP 98.3
--- NOTE | 2020-06-04 15:13 | P.CNNES ---
History of Present Illness Consult date: 06/04/20 Requesting physician: Gamaliel Lin Reason for Consult: Bilateral arm heaviness and feeling dizzy History of Present Illness: This is a 59-year-old gentleman with history of TIA , tobacco use, bipolar, depression, that presented to the emergency department on 06/03/2020 for bilateral shoulder and arm heaviness 2 weeks ago that lasted briefly but reoccurred again around 2AM 2 days ago. She stated that he has chronic back pain. 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 He denied any weakness, visual disturbance, difficulty getting his words out, any upper or lower tremor D weakness, any sensory loss, any difficulty swallowing. He denies any radiation of the neck pain that. Then the about 2 days ago around 2:00 in the morning he woke up to get ready to for work then the he had similar episode. 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 He he as snowboarding recently and the 3 days ago he said that he was shoveling the snow and he was bending his neck and body the whole time from the large snow storm. Currently the patient is back to baseline. He denies of any visual disturbance, numbness, weakness, headaches. He says smokes 1 pack a day and it's been chronic use. He denies any alcohol use. Patient home medication is Lipitor 80 mg, Plavix 75 mg, amlodipine. He denies any history of atrial fibrillation. Regarding his TIA he said that he had left lip and the from the 30 the fifth digits the fingers there are numb about 5 years ago which was a brief episode lasting a minute. Workup in the hospital consisted of: CT of the head is reported as no acute process. I personally reviewed the CT of the head and I do agree there is no acute or subacute ischemic stroke. There is no intraparenchymal hemorrhage. I felt like it patient had encephalomalacia over the anterior horn of the on the right. Carotid duplex is reported as intimal thickening in the bilateral atheromatous plaquing without flow-limiting stenosis. 2-D echo was reported as overall left ventricle systolic function is normal with ejection fraction 55-60%. Mobile intra-arterial septum. Normal left atrial size by volume. Initial serum glucose is 104. AST and ALT are normal. 28/17. CK is 122 which is normal. Lipid panel triglycerides 71, cholesterol of 120, LDL of 64, HDL 41. Review of Systems Review of system: The 12 point system was reviewed and apparent positive and negative per HPI. Past Medical History Past Medical History: Chest Pain / Angina, Hyperlipidemia, Hypertension Additional Past Medical History / Comment(s): thoracic and lumbar back pain, L acromioclaviculat joint separation, L shoulder pain, trigger finger deformity l middle finger, acute naso pharyngitis, hypogonadism, depresion-major/mild, nicotine addiction, left knee osteomyelitis treated with IV antibiotics. History of Any Multi-Drug Resistant Organisms: None Reported Past Surgical History: Bowel Resection, Orthopedic Surgery Additional Past Surgical History / Comment(s): LT knee arthroscopy/menisectomy, LT arm's elbow fx with repair. LT THUMB SX, hand surgery Past Anesthesia/Blood Transfusion Reactions: No Reported Reaction Additional Past Anesthesia/Blood Transfusion Reaction / Comment(s): NEVER HAD BLOOD TRANSFUSION Past Psychological History: Bipolar, Depression Additional Psychological History / Comment(s): PT LIVES AT HOME WITH . .HE IS INDEPENDENT. 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 Smoking Status: Current every day smoker Past Alcohol Use History: None Reported Additional Past Alcohol Use History / Comment(s): Patient states he smokes 1-2 packs per day for the past 40 years. Past Drug Use History: Marijuana Additional Drug Use History / Comment(s): SMOKES MARIJUANA DAILY-INSTRUTED TO REFRAIN FROM USE FOR AT LEAST 24 HOURS PRIOR TO PROCEDURE - Past Family History Father Family Medical History: Coronary Artery Disease (CAD), Myocardial Infarction (NV) Additional Family Medical History / Comment(s): FATHER AT AGE 63 OF NV. Mother Family Medical History: Deep Vein Thrombosis (DVT) Additional Family Medical History / Comment(s): MOTHER IS ALIVE AND IS 92 YRS OLD. Brother(s) Additional Family Medical History / Comment(s): Patient has 11 siblings, 5 sisters and 5 brothers alive. He had 1 brother that at 6 years of age after being hit by a car. Patient has 3 sons and 1 daughter that are healthy Medications and Allergies Home Medications Medication Instructions Recorded Confirmed Type Atorvastatin [Lipitor] 80 mg PO HS 08/05/19 06/03/20 History Clopidogrel [Plavix] 75 mg PO DAILY 08/05/19 06/03/20 History Divalproex Sodium [Depakote] 1,000 mg PO HS 08/05/19 06/03/20 History Escitalopram [Lexapro] 10 mg PO DAILY 08/05/19 06/03/20 History Omeprazole 20 mg PO DAILY 08/05/19 06/03/20 History amLODIPine BESYLATE/BENAZEPRIL 1 cap PO DAILY 08/05/19 06/03/20 History [Lotrel 5-10 MG] Cholecalciferol [Vitamin D3 (25 25 mcg PO DAILY 06/03/20 06/03/20 History Mcg = 1000 Iu)] Albuterol Inhaler [Ventolin Hfa 1 puff INHALATION Q6H PRN #1 puff 06/04/20 Rx Inhaler] Aspirin 81 mg PO DAILY chew 06/04/20 Rx Nicotine 21Mg/24Hr Patch [Habitrol] 1 each TRANSDERM DAILY #14 patch 06/04/20 Rx Allergies Allergy/AdvReac Type Severity Reaction Status Date / Time Penicillins Allergy Severe Swelling Verified 06/03/20 21:01 Physical Examination - Vital Signs Vital Signs: Vital Signs Temp Pulse Pulse Resp BP BP Pulse Ox 06/04/20 07:00 98.2 F 55 L 18 131/73 97 06/04/20 04:25 97.9 F 59 L 127/73 96 06/03/20 20:48 65 18 144/79 97 06/03/20 18:37 98.3 F 70 18 122/74 98 Intake and Output 06/03/20 06/04/20 06/04/20 22:59 06:59 14:59 Intake Total 236 Balance 236 Intake: Oral 236 Other: Voiding Method Toilet # Voids 1 2 Weight 68.039 kg 68.039 kg GENERAL: The patient is lying in bed and is not in acute distress. CHEST: The heart rate is regular rate rhythm. No murmurs to auscultation. No carotid bruit bilaterally. LUNG: Clear to auscultation bilaterally no wheezing noted throughout. Not labored breathing. ABDOMEN/GI: Bowel sounds present in all 4 quadrants. No tenderness to palpation throughout. NEUROLOGICAL: Higher mental function: The patient is awake, alert, oriented to self, place and time. Patient is following commands. No aphasia and no neglect. Cranial nerves: The pupils are round, equal and reactive to light and accommodation. Visual waterman are full to confrontation throughout. Extraocular movement is intact no nystagmus is noted. Facial sensation is normal to touch throughout. The facial strength is normal throughout. Hearing is normal bilaterally to hand rub. Tongue is midline and moved [id number] without any difficulty. No dysarthria is noted. Shoulder shrug is normal bilaterally. Motor: Gait is normal. The strength is 5 over 5 throughout. Normal tone and bulk. Cerebellum: Normal finger to nose heel to chin bilaterally. Sensation: Sensation is normal to touch throughout. Reflexes (right/left): 2+ Plantars are downgoing bilaterally. Results Noguera virus PCR is nondetected. Coagulation study: PT of 10.6, INR 1.0, PTT of 26.2. - Laboratory Findings CBC and BMP: 06/04/20 10:16 06/04/20 10:16 Abnormal Lab Findings: Abnormal Labs 06/03/20 06/03/20 19:12 19:12 RBC 4.06 L Chloride 108 H Glucose 104 H Assessment and Plan Assessment: This is a 59-year-old gentleman that presented to the emergency department on 06/03/2020 for chest pain and bilateral shoulder and arm heaviness 2 weeks ago that lasted briefly but reoccurred again around 2AM 2 days ago. Transient episode of bilateral shoulder and arm heaviness without weakness or other neurological problems. To be cervical radiculopathy due to the his chronic neck pain, and trauma to neck from heavy use of machinery at work, snowboarding recently and shoveling snow with neck bend) History of TIA Chronic back pain Hypertension Dyslipidemia Chronic nicotine dependence Daily marijuana use Plan: CT of the head is reported as no acute process. I personally reviewed the CT of the head and I do agree there is no acute or subacute ischemic stroke. There is no intraparenchymal hemorrhage. I felt like it patient had encephalomalacia over the anterior horn of the on the right. Carotid duplex is reported as intimal thickening in the bilateral atheromatous plaquing without flow-limiting stenosis. 2-D echo was reported as overall left ventricle systolic function is normal with ejection fraction 55-60%. Mobile intra-arterial septum. Normal left atrial size by volume. CK is 122 which is normal. Lipid panel triglycerides 71, cholesterol of 120, LDL of 64, HDL 41. TSH is ordered and is pending. Hemoglobin A1c is ordered and is also pending. Patient is started on aspirin 81 mg in addition to the patient the Plavix 75 mg (per cardiology). Patient continues to be on the Lipitor 80 mg was continued in our facility. OT are consulted. Patient refused to get MRI of the brain as well as cervical spine and would like to get as an outpatient. I advised him that he needs to follow-up with a neurologist within 1-2 weeks as an outpatient. Possibly consider EMG with nerve conduction as an outpatient as well. Patient was advised to avoid repetitive stress to the neck. Patient was counseled on tobacco cessation. Cardiology is consulted. From a neurology perspective there is no further workup needed at this time. Thank you for the consultation. Aris Pereyra MD Neuro-Hospitalist Time with Patient: Greater than 30
[2020-06-04 15:41] LABS: African American GFR (CKD) 114.9 (60.0-200.0); Albumin 4.1 g/dL (3.80-4.90); Albumin/Globulin Ratio 2.05 (1.60-3.17); Anion Gap 4.8 mmol/L (4.00-12.00); BUN/Creat Ratio 17.5 Ratio (12.00-20.00); Calcium 8.7 mg/dL (8.7-10.3); Carbon Dioxide 24.2 mmol/L (21.6-31.8); Non-African American GFR(CKD) 99.2 (60.0-200.0); Potassium 4.2 mmol/L (3.5-5.5); Total Bilirubin 0.6 mg/dL (0.3-1.2); Total Protein 6.1 g/dL (6.2-8.2)
[2020-06-04 16:06] LABS: Basophils # (A) 0.11 X 10*3/uL (0.00-0.10); Basophils % (A) 1.2 %; Eosinophils # (A) 0.15 X 10*3/uL (0.04-0.35); Eosinophils % (A) 1.6 %; HCT 40.9 % (39.6-50.0); HGB 14.1 g/dL (13.0-17.0); Lymphocytes # (A) 3.28 X 10*3/uL (0.90-5.00); Lymphocytes % (A) 34.3 %; MCH 32.9 pg (27.0-32.0); MCHC 34.5 g/dL (32.0-37.0); MCV 95.3 fL (80.0-97.0); Mean Platelet Volume 10.1 fL (9.5-12.2); Monocytes # (A) 0.51 X 10*3/uL (0.20-1.00); Monocytes % (A) 5.3 %; Neutrophils # (A) 5.47 X 10*3/uL (1.80-7.70); Neutrophils % (A) 57.3 %; Platelet Count 299 X 10*3/uL (140-440); RBC 4.29 X 10*6/uL (4.40-5.60); RDW 13.8 % (11.5-14.5); WBC 9.55 X 10*3/uL (4.50-10.00)
[2020-06-04 19:03] LABS: Hemoglobin A1C 5.7 % (4.0-6.0)
[2020-06-05] MEDS ORDERED: ASPIRIN 81 MG PO SCH (09:00)
--- NOTE | 2020-06-06 09:36 | DS ---
DISCHARGE SUMMARY DATE OF ADMISSION: 06/03/2020 DATE OF DISCHARGE: 06/04/2020 FINAL DIAGNOSIS: 1. Possible cervical spine radiculopathy. 2. Hyperlipidemia. 3. Essential hypertension. 4. Hypogonadism. 5. Chronic depression. 6. Hyperlipidemia. 7. Chronic nicotine dependence, cigarette smoker. 8. Chronic obstructive pulmonary disease in a current smoker. CONSULTATIONS: 1. Dr. Pereyra from Neurology. 2. Dr. Joe Morrell from Cardiology. HOSPITAL COURSE: This is a pleasant 59-year-old patient with a history of TIA, tobacco use, bipolar depression, who presented with bilateral shoulder and arm heaviness for 2 weeks. It lasted briefly, then recurred again around 2:00 a.m. 2 days ago. The patient has chronic back pain. 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 Denied any other neurological deficit. Two days ago when he got up at 2 in the morning to go to work he had a similar episode. 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 He has done snowboarding recently and 3 days ago he was shoveling quite a bit of snow with his neck bent following the large snow storm. The patient was seen by Dr. Pereyra from Neurology. It is more likely felt to be cervical radiculopathy. He was offered an MRI of the brain and cervical spine but the patient had refused to Dr. Pereyra. He has told him to follow up with neurologist in the next week or so. Possibly undergo also an EMG nerve conduction study. The patient also was seen by Cardiology. They did not feel the patient had any acute coronary syndrome. The patient's symptoms are much better by the time of discharge. Patient's CT scan of the brain nil acute. Two-D echocardiogram showed EF of 55-60%. No wall motion abnormality. Carotid Doppler unremarkable. PHYSICAL EXAMINATION: On examination, temperature 98.3, pulse 64, respiration 14, blood pressure 114/71, pulse ox 97% on room air. Lungs decreased breath sounds, mild wheezing. Cardiovascular first and second sounds normal. Neurological, power and sensation grossly intact. DISCHARGE MEDICATIONS: 1. Lipitor 80 mg q.h.s. 2. Plavix 75 mg a day. 3. Depakote 1000 mg at bedtime. 4. Lexapro 10 mg a day. 5. Omeprazole 20 mg a day. 6. Lotrel 5/10 1 capsule p.o. daily. 7. Vitamin D3 25 mcg daily. 8. Ventolin HFA 1 puff q.6 p.r.n. 9. Aspirin 81 mg daily. 10.Nicotine patch 21, 14 patches. FOLLOW UP: Follow up with Dr. Joe Morrell in 3 weeks, Dr. Haji in [address] Gary in 2 days. DISPOSITION: Home. MMODL / IJN: [id number] /
[2020-06-07] MEDS ORDERED: ERGOCALCIFEROL 1,250 MCG (50,000 IU) CAPSULE PO SCH (09:00)
== END 2020-06-04 15:48 | disposition home or self-care (01) ==
LOC: EC 18:35 → 6NMEDSUR 20:28
PROVIDERS: ADMIT Hospitalist; ATTEND Hospitalist
DX: R07.89 Other chest pain (principal); M25.511 Pain in right shoulder; M25.512 Pain in left shoulder; R20.0 Anesthesia of skin; R11.0 Nausea; R42 Dizziness and giddiness; J44.9 Chronic obstructive pulmonary disease, unspecified; Z86.73 Personal history of transient ischemic attack (TIA), and cerebral infarction without residual deficits; E78.5 Hyperlipidemia, unspecified; I10 Essential (primary) hypertension; G89.29 Other chronic pain; M54.5 Low back pain; M54.6 Pain in thoracic spine; F31.9 Bipolar disorder, unspecified; F17.210 Nicotine dependence, cigarettes, uncomplicated; M65.332 Trigger finger, left middle finger; Z79.899 Other long term (current) drug therapy; Z79.82 Long term (current) use of aspirin; Z79.02 Long term (current) use of antithrombotics/antiplatelets; Z88.0 Allergy status to penicillin; Z87.09 Personal history of other diseases of the respiratory system; Z86.19 Personal history of other infectious and parasitic diseases; Z20.822 Contact with and (suspected) exposure to COVID-19; Z82.49 Family history of ischemic heart disease and other diseases of the circulatory system
CPT/HCPCS: 93005 ×2; 99285; 36415; 93306; 97165; 85379; 83880; 80061; 80053 ×2; 84443; 82550; 83735; 84484 ×2; 85025 ×2; 85610; 85730; 83036; 87635; 71046; 93880; 70450; G0378 ×2; S4990

== ENCOUNTER → 2021-01-21 | Outpatient (CLI) | payer BC ==
--- NOTE | 2021-01-21 09:30 | MR ---
EXAMINATION TYPE: MR brain wo con DATE OF EXAM: 01/21/2021 COMPARISON: MRI brain July 06, 2016 HISTORY: Visual Disturbance TECHNIQUE: Multiplanar, multisequence imaging of the brain and brainstem is performed without IV cont rast. FINDINGS: Diffusion weighted images demonstrate no evidence of a recent infarct or other diffusion abnormality. Mild ventricular and sulcal prominence redemonstrated. T2*weighted images show no suspicious intrapar enchymal blood product. There are some scattered foci of T2 hyperintensity seen throughout the white matter bilaterally. Approximately 15-20 small scattered lesions redemonstrated. Lesions are nonspecif ic in appearance and distribution. Midline structures demonstrate normal morphology. The craniocervical junction appears within normal limits. Normal vascular flow voids are present. The visualized sinuses are clear and the globes are i ntact. Some patchy fluid signal right mastoid air cells remains present. IMPRESSION: Mild diffuse age-related cerebral atrophy and mild to borderline moderate chronic small v essel change redemonstrated. Possible mild right-sided recurrent mastoiditis versus retained secretio ns. Correlate clinically. No significant change from prior MRI.
--- NOTE | 2021-01-21 09:34 | XR ---
EXAMINATION TYPE: XR facial bones complete DATE OF EXAM: 01/21/2021 COMPARISON: NONE HISTORY: Pain TECHNIQUE: 3 views FINDINGS: Calcification soft tissue the left neck. Osseous structures intact. No acute fracture. No d islocation. IMPRESSION: No acute osseous abnormality. Correlate for carotid artery atherosclerotic disease.
== END | disposition home or self-care (01) ==
LOC: RADMRIMAIN 08:13
PROVIDERS: ATTEND Family Medicine
DX: G31.9 Degenerative disease of nervous system, unspecified (principal); I70.90 Unspecified atherosclerosis
CPT/HCPCS: 70150; 70551

== ENCOUNTER → 2021-03-09 | Outpatient (CLI) | payer BC ==
--- NOTE | 2021-03-09 08:24 | CTL ---
EXAMINATION TYPE: CT Low Dose Lung DATE OF EXAM ORDERED: 03/09/2021 COMPARISON: May 20, 2019 HISTORY: . Low Dose CT Lung Screening CT DLP: [address] CTDI: 1.8 mGy IV CONTRAST USED: None. SCREENING VISIT: First visit COMPARISON: None. TECHNIQUE: Low dose computed tomography scan was performed through the chest at 1 millimeter thick se ctions and reconstructed images in the coronal plane at [address] DIAGNOSTIC QUALITY: Satisfactory FINDINGS: LUNG NODULES: Not presentLeft lung: no nodules identified.Right lung: no nodules identified. LUNGS: COPD: Severity: Mild Fibrosis: Severity:None Lymph nodes: None Other findings: None RIGHT PLEURAL SPACE: Effusion: None Calcification: None Thickening: None Pneumothorax: None LEFT PLEURAL SPACE: Effusion: None Calcification: None Thickening: None Pneumothorax: None HEART: Heart Size: Mildly enlarged Coronary calcification: Mild Pericardial effusion: None OTHER FINDINGS: Upper abdomen: No significant abnormality Bony thorax: Degenerative changes Supraclavicular region: No significant abnormalityOther: No significant abnormalityI IMPRESSION: No suspicious new nodules or masses. FOLLOW UP CT CHEST RECOMMENDATION: Follow-up screening in one year CT LUNG RAD: LUNG RAD CATEGORY lung RADS 1 negative
== END | disposition home or self-care (01) ==
LOC: RADCTMAIN 07:26
PROVIDERS: ATTEND Family Medicine
DX: Z12.2 Encounter for screening for malignant neoplasm of respiratory organs (principal); Z87.891 Personal history of nicotine dependence
CPT/HCPCS: 71271

== ENCOUNTER → 2022-04-27 | Outpatient (CLI) | payer BC ==
--- NOTE | 2022-04-27 07:47 | CTL ---
EXAMINATION TYPE: CT Low Dose Lung DATE OF EXAM ORDERED: 04/27/2022 HISTORY: Long-term tobacco use. Lung cancer screening CT DLP: 83.[address] CTDI: 2.30 mGy Automated exposure control for dose reduction was used. SCREENING VISIT: Third after baseline COMPARISON: Prior studies 2020, 2019, in 2018 TECHNIQUE: Low dose computed tomography scan was performed through the chest at 1 mm thick sections a nd reconstructed images in multiple planes at 8 mm and 5 mm thick sections with MIP imaging. CT DIAGNOSTIC QUALITY: Satisfactory FINDINGS: LUNG NODULES: None. LUNGS: COPD: Severity: Mild Fibrosis: Severity: None Lymph nodes: None Other findings: None RIGHT PLEURAL SPACE: Effusion: None Calcification: None Thickening: None Pneumothorax: None LEFT PLEURAL SPACE: Effusion: None Calcification: None Thickening: None Pneumothorax: None HEART: Heart Size: Normal Coronary Calcification: Mild to moderate Pericardial Effusion: None OTHER FINDINGS: Upper abdomen: None Bony thorax: None Supraclavicular region: None Other: None IMPRESSION: Mild emphysematous change without new pulmonary nodules. CT LUNG RAD AND CT CHEST RECOMMENDATION: Lung-Rad 1 Negative: Continue annual screening with LDCT in 12 months. S Modifier (other clinically significant findings): None
== END | disposition home or self-care (01) ==
LOC: RADCTMAIN 06:48
PROVIDERS: ATTEND Family Medicine
DX: Z12.2 Encounter for screening for malignant neoplasm of respiratory organs (principal); Z87.891 Personal history of nicotine dependence; Z86.73 Personal history of transient ischemic attack (TIA), and cerebral infarction without residual deficits; J43.9 Emphysema, unspecified
CPT/HCPCS: 71271